=== PATIENT | female | born 1985 | race Caucasian/White ===

== ENCOUNTER 2017-01-09 08:19 | Emergency (ER) | payer BC ==
[2017-01-09 08:35] VITALS: BP 98/69
--- NOTE | 2017-01-09 08:42 | UC ---
Throat Pain/Nasal Franck HPI - HPI Summary HPI Summary: sinus pain and pressure x 3 weeks + pnd, cough, runny nose, sore throat no fever, + chills - History of Current Complaint Chief Complaint: UCRespiratory Stated Complaint: SORE THROAT,SINUS Time Seen by Provider: 01/09/17 08:23 Hx Obtained From: Patient Hx Last Menstrual Period: 11/27/16 ?: No Onset/Duration: Gradual Onset, Lasting Weeks - 3, Still Present Severity: Moderate Cough: Nonproductive Associated Signs & Symptoms: Positive: Sinus Discomfort, Nasal Discharge. Negative: Fever, Vomiting, Rash - Allergies/Home Medications Allergies/Adverse Reactions: Allergies Allergy/AdvReac Type Severity Reaction Status Date / Time No Known Allergies Allergy Verified 01/09/17 08:30 Home Medications: Home Medications Levonorgestrel (Iud) [Mirena IUD] 20 mcg IU ONCE 01/09/17 [History Confirmed ] Loratadine & Pseudoephedrine [Claritin-D 12 Hour] 1 tab PO BID PRN 01/09/17 [ History Confirmed 01/09/17] PMH/Surg Hx/FS Hx/Imm Hx Previously Healthy: Yes - Surgical History Surgical History: Yes Surgery Procedure, Year, and Place: - Family History Known Family History: Negative: Diabetes - Social History Alcohol Use: None Substance Use Type: None Smoking Status (MU): Never Smoked Tobacco Have You Smoked in the Last Year: No - Immunization History Most Recent Influenza Vaccination: 07/2014 Most Recent Tetanus Shot: 12/22/14 Most Recent Pneumonia Vaccination: none Review of Systems Constitutional: Negative Skin: Negative Eyes: Negative ENT: Sore Throat, Ear Ache, Nasal Discharge Respiratory: Cough Cardiovascular: Negative Gastrointestinal: Negative Genitourinary: Negative All Other Systems Reviewed And Are Negative: Yes Physical Exam Triage Information Reviewed: Yes Appearance: Well-Appearing, No Pain Distress, Well-Nourished Vital Signs: Initial Vital Signs Temp 98.6 F 01/09/17 08:31 Pulse 95 01/09/17 08:31 Resp 18 01/09/17 08:31 BP 98/69 01/09/17 08:31 Pulse Ox 100 01/09/17 08:31 Vital Signs Reviewed: Yes Eye Exam: Normal Eyes: Positive: Conjunctiva Clear ENT: Positive: Normal ENT inspection, Hearing grossly normal, Pharyngeal erythema, Nasal congestion, Nasal drainage, TMs normal Neck: Positive: Supple, Nontender, No Lymphadenopathy Respiratory: Positive: Chest non-tender, Lungs clear, Normal breath sounds Cardiovascular: Positive: RRR, No Murmur, Pulses Normal Throat Pain/Nasal Course/Dx - Differential Dx/Diagnosis Provider Diagnoses: sinusitis Discharge - Discharge Plan Condition: Stable Disposition: HOME Prescriptions: Amoxicillin/Clavulanate TAB* [Augmentin TAB 875*] 875 mg PO BID #20 tab Patient Education Materials: Sinusitis (ED) Additional Instructions: follow up as needed
== END 2017-01-09 08:46 | disposition home or self-care (01) ==
LOC: UCCORT 08:19
DX: J32.9 Chronic sinusitis, unspecified (principal)
CPT/HCPCS: 99212; G0463

== ENCOUNTER 2017-02-17 20:19 | Emergency (ER) | payer BC ==
--- NOTE | 2017-02-17 21:37 | UC ---
Complaint Female HPI - HPI Summary HPI Summary: ONSET OF THICK, WHITE VAGINAL DISCHARGE YESTERDAY. IS AND HAS UNPROTECTED SEX BUT LAST INTERCOURSE WAS 3 WEEKS AGO. HAS BEEN RUNNING A LOT AND WEARS TIGHT RUNNING PANTS. DOES NOT DOUCHE. IS DUE FOR MENSES ANY DAY NOW. HAS MIRENA IUD SO MENSES ARE RELATIVELY LIGHT. HAS NEVER HAD VAGINITIS BEFORE. DENIES URINARY SYMPTOMS. DOES NOT FEEL LIKE UTI. NO FEVER. - History Of Current Complaint Chief Complaint: UCGU Stated Complaint: PERSONAL Time Seen by Provider: 02/17/17 21:28 Hx Obtained From: Patient Hx Last Menstrual Period: 01/15/17 (HAS IUD) Onset/Duration: Lasting Hours, Still Present Timing: Constant Severity Initially: Moderate Severity Currently: Moderate Pain Intensity: 0 Pain Scale Used: 0-10 Numeric Character: Burning - ITCHY Associated Signs And Symptoms: Positive: Vaginal Discharge - Allergies/Home Medications Allergies/Adverse Reactions: Allergies Allergy/AdvReac Type Severity Reaction Status Date / Time No Known Allergies Allergy Verified 02/17/17 20:55 PMH/Surg Hx/FS Hx/Imm Hx Previously Healthy: Yes - Surgical History Surgical History: Yes Surgery Procedure, Year, and Place: - Family History Known Family History: Negative: Hypertension, Diabetes - Social History Alcohol Use: None Substance Use Type: None Smoking Status (MU): Never Smoked Tobacco Have You Smoked in the Last Year: No - Immunization History Most Recent Influenza Vaccination: 07/2014 Most Recent Tetanus Shot: 12/22/14 Most Recent Pneumonia Vaccination: none Review of Systems Constitutional: Negative Respiratory: Negative Cardiovascular: Negative Gastrointestinal: Negative Genitourinary: Other - VAGINAL D/C AND ITCHING All Other Systems Reviewed And Are Negative: Yes Physical Exam Triage Information Reviewed: Yes Appearance: Well-Appearing, No Pain Distress, Well-Nourished Vital Signs: Initial Vital Signs Temp 99.3 F 02/17/17 20:50 Pulse 78 02/17/17 20:50 Resp 16 02/17/17 20:50 BP 119/80 02/17/17 20:50 Pulse Ox 100 02/17/17 20:50 Vital Signs Reviewed: Yes Eyes: Positive: Conjunctiva Clear ENT: Positive: Hearing grossly normal Neck: Positive: Supple Respiratory: Positive: No respiratory distress, No accessory muscle use Cardiovascular: Positive: Pulses Normal Abdomen Description: Positive: Soft Musculoskeletal: Positive: No Edema Neurological: Positive: Alert Psychological: Positive: Age Appropriate Behavior Skin: Negative: rashes UC Physical Exam Vital Signs On Initial Exam: Initial Vitals Temp Pulse Resp BP Pulse Ox 99.3 F 78 16 119/80 100 02/17/17 20:50 02/17/17 20:50 02/17/17 20:50 02/17/17 20:50 02/17/17 20:50 - Genitalia Exam Female Genitourinary: Normal External Exam, Genitalia without Lesions/Masses, Other - THIN, SILVERMAN/WHITE VAGINAL DISCHARGE IN VAGINAL VAULT. NO CMT. NO ADNEXAL TENDERNESS Complaint Female Dx - Differential Dx/Diagnosis Provider Diagnoses: BACTERIAL VAGINOSIS Discharge - Discharge Plan Condition: Stable Disposition: HOME Prescriptions: Metronidazole [Flagyl 500 MG TAB] 500 mg PO BID #13 tab Patient Education Materials: Bacterial Vaginosis (ED) Referrals: Grecia Weston MD [Medical Doctor] - If Needed Additional Instructions: EXAM FINDINGS SUGGESTIVE OF BV. WILL TREAT WITH METRONIDAZOLE. NO ALCOHOL WHILE TAKING THIS MED. SWAB SENT TO TEST FOR OTHER TYPES OF VAGINITIS. WE WILL CALL YOU IF ANY ABNORMAL RESULTS.
[2017-02-17] MEDS ORDERED: metroNIDAZOLE TAB* 250 MG PO ONE (22:14)
[2017-02-17 22:30] VITALS: BP 107/75
--- NOTE | 2017-02-18 23:16 | UC ---
Progress - Progress Note Progress Note: VAGINAL SWAB NEG FOR BV, POS FOR YEAST. OKAY TO STOP FLAGYL. DIFLUCAN ERX SENT TO [facility] [address]
== END 2017-02-17 22:30 | disposition home or self-care (01) ==
LOC: UCEAST 20:19
DX: N76.0 Acute vaginitis (principal)
CPT/HCPCS: 87480; 87510; 87660; 99213; A9270-GY; G0463